=== PATIENT | male | born 1985 | race Caucasian/White ===

== ENCOUNTER 2017-05-18 16:16 | Inpatient (IN) ==
[2017-05-18] MEDS ORDERED: LORazepam 2 MG/ML VIAL IV ONE ×2 (16:19→17:25)
[2017-05-18] MEDS ORDERED: 0.9 % SODIUM CHLORIDE 2,000 ML IV ONE (16:19)
[2017-05-18] MEDS ORDERED: ONDANSETRON 4 MG/2 ML VIAL ONE (16:20)
[2017-05-18] MEDS ORDERED: ONDANSETRON 4 MG/2 ML VIAL IV ONE (16:22)
[2017-05-18] MEDS ORDERED: HALOPERIDOL LACTATE 5 MG/ML VIAL ONE ×2 (16:27→21:34)
[2017-05-18] MEDS ORDERED: LORazepam 2 MG/ML VIAL ONE (16:30)
[2017-05-18 17:06] LABS: Basophils # (Auto) 0 K/mcL (0.0-0.3); Basophils % (Auto) 0.4 % (0.0-2.0); Eosinophils # (Auto) 0.2 K/mcL (0.0-0.7); Eosinophils % (Auto) 1.9 % (0.0-7.0); Granulocytes % (Auto) 63.8 % (38.0-78.0); Lymphocytes # (Auto) 1.9 K/mcL (1.5-4.8); Mean Cell Volume 90.6 fL (80.0-100.0); Mean Corpuscular HGB Conc 33.2 g/dL (31.0-36.0); Mean Corpuscular Hemoglobin 30.1 pg (26.0-34.0); Monocytes # (Auto) 0.8 K/mcL (0.1-0.9); Monocytes % (Auto) 9.9 % (1.0-12.0); Platelet Count 227 K/mcL (140-440); RBC 5.34 M/mcL (4.50-5.90)
[2017-05-18 17:28] LABS: ALT/SGPT 55 U/l (0-40); Albumin 4.5 gm/dL (3.2-5.2); Albumin/Globulin Ratio 1.6 (1.0-2.3); Alkaline Phosphatase 64 U/L (39-117); Blood Urea Nitrogen 23 mg/dl (6-20); Creatine Kinase 146 IU/L (24-195)
[2017-05-18 17:31] LABS: Acetaminophen < 5.0 ug/mL; Salicylate < 0.3 mg/dL
[2017-05-18 17:44] LABS: Amphetamine Screen,Urine SUSPECT POSITIVE (NONDETECTED); Benzodiazepines Screen,Urine NONE DETECTED (NONDETECTED); Cocaine Screen,Urine NONE DETECTED (NONDETECTED); Opiate Screen,Urine NONE DETECTED (NONDETECTED); Oxycodone, Urine Screen NONE DETECTED (NONDETECTED)
--- NOTE | 2017-05-18 17:55 | XRay Report ---
HISTORY: Reason for Exam:Altered mental status FINDINGS: The lungs are clear but incompletely expanded due to poor inspiration. Heart is also prominent but accentuated by poor inspiration and portable technique. There is no pleural effusion. No adenopathy is detected. Impression: suboptimal inspiration but otherwise normal chest Interpreted and Authenticated by: Lexa Almeida 05/18/17
--- NOTE | 2017-05-18 17:57 | Cat Scan Report ---
History: Drug overdose and unresponsive Findings: The brain was imaged without contrast at 2.5 mm intervals. There is no evidence of hemorrhage, infarct, edema, mass effect or developmental anomaly. No degenerative change is seen. The ventricles and cisterns are normal. Bone windows show no skull lesion. Impression: Normal unenhanced head CT Dr. Bowers was called with results Interpreted and Authenticated by: Lexa Almeida 05/18/17
[2017-05-18 18:52] LABS: Appearance,Urine TURBID; Bacteria,Urine 0 /hpf (0); Bilirubin,Urine NEG (NEG); Color,Urine YELLOW; Glucose,Urine (UA) NEGATIVE (NEG); Leukocyte Esterase,Urine NEG /uL (NEG); Mucus,Urine MANY /hpf (0); Protein,Urine 30 mg/dL (NEG); Urine Amorphous Crystals FEW /hpf (0); Urine Blood NEG mg/dL (<0.03); Urine Hyaline Cast 2 /lpf (0-2); Urine RBC 1 /hpf (0-1); Urine Squamous Epithelial Cell 0 /hpf (0-4); Urine WBC 4 /hpf (0-4); Urobilinogen,Urine NEG (NEG)
[2017-05-18] MEDS ORDERED: 0.9 % SODIUM CHLORIDE 1,000 ML IV ONE (19:00)
--- NOTE | 2017-05-18 19:14 | Emergency Department Note ---
Altered Mental Status HPI - General Chief Complaint: Altered Mental Status Stated Complaint: Unresponsive Time Seen by Provider: 05/18/17 16:18 Source: EMS Mode of arrival: EMS Limitations: altered mental status, physical limitation - History of Present Illness HPI Narrative: 31-year-old male brought in by police for altered mental status. Apparently the neighbors called police due to him acting very strangely. According to the collection officer and police that are here with him, they think that he took an overdose of his antidepressants. Possibly 8 or 9 pills according to their account. He is currently taking BuSpar and amitriptyline. According to the he does not take his medications as directed. She states that he does not take them for weeks at a time and then will take 6 at a time. His , Sourav, did call and have a conversation with me via phone. She states that over the last 2-3 months he has become extremely erratic and very depressed. States he has a history of schizophrenia, bipolar, depression, anxiety, and multiple personality disorder. States he has not been taking his medication as he is supposed to. She states she last dropped him off at home and he was acting like his usual self, "or at least the way he has been acting last 2 or 3 months ", at 1345 today. About a half hour later she received a text from him saying "I love you and I am sorry for everything ". She states he does this when he attempts to harm himself and so she thought something could be wrong. Shortly after that she received a call from the neighbors that they had called police due to his altered level of consciousness and they are concerned. His does state he has a history of meth use and heroin use. Over the last couple of weeks they have also caught him stealing his [id number]'s insulin needles and shooting up toilet bowl book cleaner. His states in the last 3 weeks he has made multiple attempts to kill himself including this. He tells her that he is taking extremely high doses of meth to try to kill himself as well as shooting up the toilet bowl book cleaner. She has also caught him with a belt around his neck in bed this week and was able to get off of him. She states she has not called police because he freaks out even more because he is on probation and paranoid of police. States he spent his life and out of nursing home due to drug use and his erratic behavior. She states he desperately needs help and she does not know what to do for him. She does state that last weekend he went to detox up at [facility] and [facility]. He entered on Thursday and was released Thursday and she picked him up there. When he was released Thursday originally he was supposed to go to an inpatient mental health facility however he does not have insurance and they could not find any program that was going to take him because of that. She believes that he overdosed her to a combination of drugs and medications to try and harm himself today because his attempts are getting more frequent and more serious. She reports the last 2-3 months he also has extreme paranoid behavior. She also feels like he is seeing things or hearing things. He does not have a primary care provider but rather goes to [facility] clinic. She states this last week he has really escalated in the try to get an appointment there however they were completely full and he could not follow up with anyone. The patient is extremely combative on arrival and does not give comprehensible answers. History is not able to be obtained from him. MD complaint: altered mental status Context: drug abuse Associated symptoms: Denies: rash - Related Data Home Medications Medication Instructions Recorded Confirmed Unobtainable [Unobtainable] 05/18/17 05/18/17 Allergies Allergy/AdvReac Type Severity Reaction Status Date / Time No Known Drug Allergies Allergy Unverified 06/02/16 14:13 Review of Systems All systems ED: reviewed and negative except as stated. Past Medical History - Past Medical History Medical history: Reports: no medical history Psychiatric history: Reports: anxiety, depression, bipolar, prior suicide attempt, schizophrenia, other (multiple personalities) Surgical history ED: Reports: no surgical history - Social History smoking status: Unknown if ever smoked Alcohol use: Reports: Unknown Drug use: Reports: opiates, methamphetamine, IVDU, prescription drug abuse Physical Exam Limitations: altered mental status, physical limitation General appearance: in distress (Thrashing in the bed, opens his eyes spontaneously at times and withdraws to painful stimulation. He is not able to have any comprehensible conversation. Appears to be hallucinating and is not alert.) Head: atraumatic, normocephalic, normal inspection Eye: Present: normal appearance, other (Pupils are pinpoint). Absent: conjunctival injection ENT: normal exam, normal oropharynx, mucous membranes moist, TM's normal bilaterally, normal external ear exam Neck: Present: normal inspection, trachea midline. Absent: lymphadenopathy Chest: Present: normal inspection, symmetric chest wall rise Respiratory: Present: normal lung sounds bilaterally. Absent: respiratory distress, wheezes, accessory muscle use Cardiovascular: Present: regular rate, normal heart sounds Abdominal: Present: soft, normal bowel sounds. Absent: distention, tenderness, mass Extremities: Present: normal inspection, normal capillary refill. Absent: pedal edema Neurological: Absent: alert, oriented X3 Patient oriented to: Absent: person, place, time Coma Scale Eye Opening: Spontaneous Coma Scale Motor Response: Withdraws to Pain Coma Scale Verbal Response: Incomprehensible Coma Scale Total: 10 Psychiatric: Present: agitated, anxious Skin: Present: warm, dry, intact, normal color. Absent: rash, cyanosis, diaphoresis, erythema Course Course Narrative: at [address] I did speak with Dr. Mcgee who agrees to accept the patient. Vital Signs Temperature 97.8 F 05/18/17 16:18 Pulse Rate 118 H 05/18/17 16:18 Respiratory Rate 18 05/18/17 16:18 Blood Pressure 143/103 05/18/17 16:18 Pulse Oximetry (%) 94 05/18/17 16:18 Temperature 97.8 F 05/18/17 16:18 Pulse Rate 80 05/18/17 19:16 Respiratory Rate 12 05/18/17 19:51 Blood Pressure 119/79 05/18/17 19:46 Pulse Oximetry (%) 100 05/18/17 19:16 Altered Mental Status - Lab Data Lab results reviewed: Yes I reviewed the patient's lab results. Result diagrams: 05/18/17 16:34 05/18/17 16:33 Lab Results 05/18/17 05/18/17 05/18/17 Range/Units 16:31 16:31 16:33 WBC (4.5-11.0) K/mcL RBC (4.50-5.90) M/mcL Hgb (13.5-16.5) g/dL Hct (41.0-55.0) % POC Hct 50.0 (41.0-55.0) % MCV (80.0-100.0) fL MCH (26.0-34.0) pg MCHC (31.0-36.0) g/dL RDW (11.5-14.5) % Plt Count (140-440) K/mcL MPV (7.4-10.4) fL Gran % (38.0-78.0) % Lymph % (Auto) (15.5-49.0) % Chaffee % (Auto) (1.0-12.0) % Eos % (Auto) (0.0-7.0) % Baso % (Auto) (0.0-2.0) % Gran # (1.8-8.0) K/mcL Lymph # (Auto) (1.5-4.8) K/mcL [place]fee # (Auto) (0.1-0.9) K/mcL Eos # (Auto) (0.0-0.7) K/mcL Baso # (Auto) (0.0-0.3) K/mcL POC PT (11.9-14.5) sec POC INR (0.9-1.2) VBG Lactic Acid POC Sodium 142 (133-145) mmol/L Sodium 137 (133-145) mmol/L POC Potassium 3.4 (3.3-5.1) mmol/L Potassium 3.4 (3.3-5.1) mmol/L POC Chloride 103 (96-108) mmol/L Chloride 98 (96-108) mmol/L Carbon Dioxide 22 (22-30) mmol/L POC Total CO2 27 (22-30) mmol/L Anion Gap 17.0 H (8-16) POC BUN 28 H (6-20) mg/dl BUN 23 H (6-20) mg/dl Creatinine 1.2 (0.7-1.2) mg/dl POC Creatinine 1.2 (0.7-1.2) mg/dl GFR Calculation 80 Glucose 100 (70-105) mg/dL POC Glucose 105 (70-105) mg/dL Calcium 9.0 (8.6-10.4) mg/dl POC WB Ioniz Calcium 1.13 L (1.16-1.32) mmol/L Total Bilirubin 0.8 (0.0-1.0) mg/dL AST 26 (0-37) U/l ALT 55 H (0-40) U/l Alkaline Phosphatase 64 (39-117) U/L Ammonia Total Creatine Kinase 146 (24-195) IU/L Troponin T (0-0.03) ng/ml Total Protein 7.3 (5.9-8.4) gm/dL Albumin 4.5 (3.2-5.2) gm/dL Globulin 2.8 (2.2-3.7) gm/dL Albumin/Globulin Ratio 1.6 (1.0-2.3) Urine Color Urine Appearance Urine pH (5.0-9.0) Ur Specific Ponce (1.000-1.035) Urine Protein (NEG) mg/dL Urine Glucose (UA) (NEG) mg/dL Urine Ketones (NEG) mg/dL Urine Occult Blood (<0.03) mg/dL Urine Nitrate (NEG) Urine Bilirubin (NEG) mg/dL Urine Urobilinogen (NEG) mg/dL Ur Leukocyte Esterase (NEG) /uL Urine RBC (0-1) /hpf Urine WBC (0-4) /hpf Ur Squamous Epith Cells (0-4) /hpf Amorphous Crystals (0) /hpf Urine Bacteria (0) /hpf Hyaline Casts (0-2) /lpf Urine Mucus (0) /hpf Ur Culture Indicated? Salicylates < 0.3 mg/dL Urine Opiates Screen (NONDETECTED) Ur Oxycodone Screen (NONDETECTED) Urine Methadone Screen (NONDETECTED) Acetaminophen < 5.0 ug/mL Ur Barbiturates Screen (NONDETECTED) Ur Phencyclidine Scrn (NONDETECTED) Ur Amphetamines Screen (NONDETECTED) U Benzodiazepines Scrn (NONDETECTED) Urine Cocaine Screen (NONDETECTED) U Marijuana (THC) Screen (NONDETECTED) Ethyl Alcohol < 0.010 (<0.010) gm/dl 05/18/17 05/18/17 05/18/17 Range/Units 16:33 16:34 16:53 WBC 8.1 (4.5-11.0) K/mcL RBC 5.34 (4.50-5.90) M/mcL Hgb 16.1 (13.5-16.5) g/dL Hct 48.4 (41.0-55.0) % POC Hct (41.0-55.0) % MCV 90.6 (80.0-100.0) fL MCH 30.1 (26.0-34.0) pg MCHC 33.2 (31.0-36.0) g/dL RDW 14.0 (11.5-14.5) % Plt Count 227 (140-440) K/mcL MPV 9.4 (7.4-10.4) fL Gran % 63.8 (38.0-78.0) % Lymph % (Auto) 24.0 (15.5-49.0) % [place]affee % (Auto) 9.9 (1.0-12.0) % Eos % (Auto) 1.9 (0.0-7.0) % Baso % (Auto) 0.4 (0.0-2.0) % Gran # 5.1 (1.8-8.0) K/mcL Lymph # (Auto) 1.9 (1.5-4.8) K/mcL [place] # (Auto) 0.8 (0.1-0.9) K/mcL Eos # (Auto) 0.2 (0.0-0.7) K/mcL Baso # (Auto) 0 (0.0-0.3) K/mcL POC PT 13.9 (11.9-14.5) sec POC INR 1.2 (0.9-1.2) VBG Lactic Acid POC Sodium (133-145) mmol/L Sodium (133-145) mmol/L POC Potassium (3.3-5.1) mmol/L Potassium (3.3-5.1) mmol/L POC Chloride (96-108) mmol/L Chloride (96-108) mmol/L Carbon Dioxide (22-30) mmol/L POC Total CO2 (22-30) mmol/L Anion Gap (8-16) POC BUN (6-20) mg/dl BUN (6-20) mg/dl Creatinine (0.7-1.2) mg/dl POC Creatinine (0.7-1.2) mg/dl GFR Calculation Glucose (70-105) mg/dL POC Glucose (70-105) mg/dL Calcium (8.6-10.4) mg/dl POC WB Ioniz Calcium (1.16-1.32) mmol/L Total Bilirubin (0.0-1.0) mg/dL AST (0-37) U/l ALT (0-40) U/l Alkaline Phosphatase (39-117) U/L Ammonia Total Creatine Kinase (24-195) IU/L Troponin T < 0.01 (0-0.03) ng/ml Total Protein (5.9-8.4) gm/dL Albumin (3.2-5.2) gm/dL Globulin (2.2-3.7) gm/dL Albumin/Globulin Ratio (1.0-2.3) Urine Color Urine Appearance Urine pH (5.0-9.0) Ur Specific Ponce (1.000-1.035) Urine Protein (NEG) mg/dL Urine Glucose (UA) (NEG) mg/dL Urine Ketones (NEG) mg/dL Urine Occult Blood (<0.03) mg/dL Urine Nitrate (NEG) Urine Bilirubin (NEG) mg/dL Urine Urobilinogen (NEG) mg/dL Ur Leukocyte Esterase (NEG) /uL Urine RBC (0-1) /hpf Urine WBC (0-4) /hpf Ur Squamous Epith Cells (0-4) /hpf Amorphous Crystals (0) /hpf Urine Bacteria (0) /hpf Hyaline Casts (0-2) /lpf Urine Mucus (0) /hpf Ur Culture Indicated? Salicylates mg/dL Urine Opiates Screen (NONDETECTED) Ur Oxycodone Screen (NONDETECTED) Urine Methadone Screen (NONDETECTED) Acetaminophen ug/mL Ur Barbiturates Screen (NONDETECTED) Ur Phencyclidine Scrn (NONDETECTED) Ur Amphetamines Screen (NONDETECTED) U Benzodiazepines Scrn (NONDETECTED) Urine Cocaine Screen (NONDETECTED) U Marijuana (THC) Screen (NONDETECTED) Ethyl Alcohol (<0.010) gm/dl 05/18/17 05/18/17 05/18/17 Range/Units 16:54 16:55 17:04 WBC (4.5-11.0) K/mcL RBC (4.50-5.90) M/mcL Hgb (13.5-16.5) g/dL Hct (41.0-55.0) % POC Hct (41.0-55.0) % MCV (80.0-100.0) fL MCH (26.0-34.0) pg MCHC (31.0-36.0) g/dL RDW (11.5-14.5) % Plt Count (140-440) K/mcL MPV (7.4-10.4) fL Gran % (38.0-78.0) % Lymph % (Auto) (15.5-49.0) % [place]affee % (Auto) (1.0-12.0) % Eos % (Auto) (0.0-7.0) % Baso % (Auto) (0.0-2.0) % Gran # (1.8-8.0) K/mcL Lymph # (Auto) (1.5-4.8) K/mcL [place]affee # (Auto) (0.1-0.9) K/mcL Eos # (Auto) (0.0-0.7) K/mcL Baso # (Auto) (0.0-0.3) K/mcL POC PT (11.9-14.5) sec POC INR (0.9-1.2) VBG Lactic Acid TNP POC Sodium (133-145) mmol/L Sodium (133-145) mmol/L POC Potassium (3.3-5.1) mmol/L Potassium (3.3-5.1) mmol/L POC Chloride (96-108) mmol/L Chloride (96-108) mmol/L Carbon Dioxide (22-30) mmol/L POC Total CO2 (22-30) mmol/L Anion Gap (8-16) POC BUN (6-20) mg/dl BUN (6-20) mg/dl Creatinine (0.7-1.2) mg/dl POC Creatinine (0.7-1.2) mg/dl GFR Calculation Glucose (70-105) mg/dL POC Glucose (70-105) mg/dL Calcium (8.6-10.4) mg/dl POC WB Ioniz Calcium (1.16-1.32) mmol/L Total Bilirubin (0.0-1.0) mg/dL AST (0-37) U/l ALT (0-40) U/l Alkaline Phosphatase (39-117) U/L Ammonia TNP Total Creatine Kinase (24-195) IU/L Troponin T (0-0.03) ng/ml Total Protein (5.9-8.4) gm/dL Albumin (3.2-5.2) gm/dL Globulin (2.2-3.7) gm/dL Albumin/Globulin Ratio (1.0-2.3) Urine Color Urine Appearance Urine pH (5.0-9.0) Ur Specific Ponce (1.000-1.035) Urine Protein (NEG) mg/dL Urine Glucose (UA) (NEG) mg/dL Urine Ketones (NEG) mg/dL Urine Occult Blood (<0.03) mg/dL Urine Nitrate (NEG) Urine Bilirubin (NEG) mg/dL Urine Urobilinogen (NEG) mg/dL Ur Leukocyte Esterase (NEG) /uL Urine RBC (0-1) /hpf Urine WBC (0-4) /hpf Ur Squamous Epith Cells (0-4) /hpf Amorphous Crystals (0) /hpf Urine Bacteria (0) /hpf Hyaline Casts (0-2) /lpf Urine Mucus (0) /hpf Ur Culture Indicated? Salicylates mg/dL Urine Opiates Screen None detected (NONDETECTED) Ur Oxycodone Screen None detected (NONDETECTED) Urine Methadone Screen None detected (NONDETECTED) Acetaminophen ug/mL Ur Barbiturates Screen None detected (NONDETECTED) Ur Phencyclidine Scrn None detected (NONDETECTED) Ur Amphetamines Screen Suspect positive A (NONDETECTED) U Benzodiazepines Scrn None detected (NONDETECTED) Urine Cocaine Screen None detected (NONDETECTED) U Marijuana (THC) Screen None detected (NONDETECTED) Ethyl Alcohol (<0.010) gm/dl 05/18/17 05/18/17 05/18/17 Range/Units 17:21 18:02 18:25 WBC (4.5-11.0) K/mcL RBC (4.50-5.90) M/mcL Hgb (13.5-16.5) g/dL Hct (41.0-55.0) % POC Hct (41.0-55.0) % MCV (80.0-100.0) fL MCH (26.0-34.0) pg MCHC (31.0-36.0) g/dL RDW (11.5-14.5) % Plt Count (140-440) K/mcL MPV (7.4-10.4) fL Gran % (38.0-78.0) % Lymph % (Auto) (15.5-49.0) % [place] % (Auto) (1.0-12.0) % Eos % (Auto) (0.0-7.0) % Baso % (Auto) (0.0-2.0) % Gran # (1.8-8.0) K/mcL Lymph # (Auto) (1.5-4.8) K/mcL [place] # (Auto) (0.1-0.9) K/mcL Eos # (Auto) (0.0-0.7) K/mcL Baso # (Auto) (0.0-0.3) K/mcL POC PT (11.9-14.5) sec POC INR (0.9-1.2) VBG Lactic Acid 0.7 POC Sodium (133-145) mmol/L Sodium (133-145) mmol/L POC Potassium (3.3-5.1) mmol/L Potassium (3.3-5.1) mmol/L POC Chloride (96-108) mmol/L Chloride (96-108) mmol/L Carbon Dioxide (22-30) mmol/L POC Total CO2 (22-30) mmol/L Anion Gap (8-16) POC BUN (6-20) mg/dl BUN (6-20) mg/dl Creatinine (0.7-1.2) mg/dl POC Creatinine (0.7-1.2) mg/dl GFR Calculation Glucose (70-105) mg/dL POC Glucose (70-105) mg/dL Calcium (8.6-10.4) mg/dl POC WB Ioniz Calcium (1.16-1.32) mmol/L Total Bilirubin (0.0-1.0) mg/dL AST (0-37) U/l ALT (0-40) U/l Alkaline Phosphatase (39-117) U/L Ammonia 39 Total Creatine Kinase (24-195) IU/L Troponin T (0-0.03) ng/ml Total Protein (5.9-8.4) gm/dL Albumin (3.2-5.2) gm/dL Globulin (2.2-3.7) gm/dL Albumin/Globulin Ratio (1.0-2.3) Urine Color Yellow Urine Appearance Turbid Urine pH 5.0 (5.0-9.0) Ur Specific Ponce 1.030 (1.000-1.035) Urine Protein 30 A (NEG) mg/dL Urine Glucose (UA) Negative (NEG) mg/dL Urine Ketones Neg (NEG) mg/dL Urine Occult Blood Neg (<0.03) mg/dL Urine Nitrate Neg (NEG) Urine Bilirubin Neg (NEG) mg/dL Urine Urobilinogen Neg (NEG) mg/dL Ur Leukocyte Esterase Neg (NEG) /uL Urine RBC 1 (0-1) /hpf Urine WBC 4 (0-4) /hpf Ur Squamous Epith Cells 0 (0-4) /hpf Amorphous Crystals Few A (0) /hpf Urine Bacteria 0 (0) /hpf Hyaline Casts 2 (0-2) /lpf Urine Mucus Many A (0) /hpf Ur Culture Indicated? No Salicylates mg/dL Urine Opiates Screen (NONDETECTED) Ur Oxycodone Screen (NONDETECTED) Urine Methadone Screen (NONDETECTED) Acetaminophen ug/mL Ur Barbiturates Screen (NONDETECTED) Ur Phencyclidine Scrn (NONDETECTED) Ur Amphetamines Screen (NONDETECTED) U Benzodiazepines Scrn (NONDETECTED) Urine Cocaine Screen (NONDETECTED) U Marijuana (THC) Screen (NONDETECTED) Ethyl Alcohol (<0.010) gm/dl - Radiology Data Radiology results reviewed: Yes I reviewed the patient's radiology results. - EKG Data EKG attestation: Yes I reviewed and interpreted this EKG. Disposition Pt seen by BUSINESS INSTRUCTOR/PA only: No Clinical Impression: Drug abuse, Altered level of consciousness, Drug overdose, Suicide attempt by drug ingestion Disposition: Xfer As Inpt ([facility]) Condition: Serious Time of Disposition: 20:00
--- NOTE | 2017-05-18 20:42 | Emergency Department Note ---
ED Note Addendum Note Addendum: I saw this patient with Donna MERCHANT-we discussed the case as it evolved. I agree with her evaluation treatment and documentation. In particular I actually took history from the police officers that brought him in and doing a quick initial evaluation, putting in some orders prior to Donna coming in. On intake he was breathing on his own and quite combative, signed for suleiman. As he had altered mental status we were not able to get any meaningful history or review of systems from him. We did give him 3 mg of Ativan which sedated him however he was breathing well on his own just required a small amount of supplemental oxygen. At no time was his respiratory or mental status bad enough to require us to intubate him; however we did consider this and plan for that in case that time came; these items were moved to the bedside. He was able to protect his airway and control his secretions so intubation was not required. Hospitalist was contacted by Donna ; Dr. Mcgee agreed to accept the patient for further inpatient care and workup
[2017-05-18] MEDS ORDERED: POTASSIUM CHLORIDE 40 MEQ in DEXTROSE 5% IN WATER 500 ML IV ONE (21:35)
[2017-05-18] MEDS ORDERED: NALOXONE HCL 0.4 MG/ML VIAL IV PRN (21:35)
[2017-05-18] MEDS ORDERED: ACETAMINOPHEN 325 MG TABLET PO PRN (21:35)
[2017-05-18] MEDS ORDERED: HALOPERIDOL LACTATE 5 MG/ML VIAL IV PRN (21:35)
[2017-05-18] MEDS ORDERED: POTASSIUM CHLORIDE 20 MEQ, MAGNESIUM SULFATE 16.24 MEQ, THIAMINE 100 MG, MVI, ADULT NO.... IV SCH (21:35)
--- NOTE | 2017-05-18 21:37 | Internal Med History&Physical ---
Medical - H&P: HPI Patient information: Note initiated : 05/18/17 at 9:34 pm Service Date, if different from initiated Date: [] Patient: Brenden Moses a 31 y/o M admitted on 05/18/17 for Unresponsive. Chief Complaint: [] History of present illness: Mr. Moses is a 31 year old Male brought in the ER via police for altered mental status, patient history has been obtained by reviewing chart notes. Patient, on my evaluation, was completely altered and not able to provide a meaningful history. Had received Ativan multiple times due to agitated behavior. According to chart review, this is a 31-year-old male who apparently has history of schizophrenia, depression, anxiety, multiple suicide attempts in the past, it seems he also has had involvement with lawn ordered in the past and is on parole. According to the chart, it seems that the patient has been behaving abnormally for the last 2-3 months. This history was obtained by the ER provider by talking directly with the patient's . It seems that the patient was recently in drug rehabilitation facility and the line to transition him to inpatient psychiatry facility, but due to lack of insurance, this was not achievable. The patient then sent a Text message to hhis that he is sorry for all the trouble he caused . After some time he was seen by the neighbors acting erratically. They had called the loss prevention detective because of his erratic behavior. Patient was then sedated and brought to the emergency for further management. According to the , the patient has a history of noncompliance with his medications and patient's medical history cannot be relied upon for which medications he took. As there have been instances in the past where he has not taken medications at a stretch and then taken them all in one go. 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 In the emergency room, patient was drowsy on presentation, but very agitated when he tries to get up, he required Ativan to keep him calm along with the restraints. According to the ER note provider. Patient tolerated this well and did not go into respiratory depression. No need for intubation. They spoke with poison contro who . Advised to monitor the patient and expect the patient's medications to clear up. patient's labs are unremarkable, CBC and CMP are normal. Potassium is 3.4, magnesium is 2.0. ABG reviewed, chest x-ray is negative. Head CT is negative, urine drug screen is positive for meth, salicylate and apap levels are negative. Tricyclic levels are pending. Ethanol level is negative. EKG showed sinus rhythm, left axis deviation, QTC of 0.486 and nonspecific T-wave changes in inferior and lateral leads given altered mental status, need for continuous monitoring, possible and likely suicide attempt, patient was presented for admission and will be admitted to PCU status for further management. ROS unobtainable: due to mental status Medical - H&P: PMH Medical history: see HPI Surgical history: unable Pertinent family history: unable Social history: h/o substance abuse, heavy meth user toilet clearer IV use? Medical - H&P: Meds Home Medications Medication Instructions Recorded Confirmed Type Unobtainable [Unobtainable] 05/18/17 05/18/17 History Allergies Allergy/AdvReac Type Severity Reaction Status Date / Time No Known Drug Allergies Allergy Unverified 06/02/16 14:13 Medical - H&P: Exam - Constitutional Vitals: Temp Pulse Resp BP Pulse Ox 97.8 F 80 14 110/71 100 05/18/17 16:18 05/18/17 19:16 05/18/17 21:06 05/18/17 20:46 05/18/17 19:16 Exam: GENERAL: The patient is a well-developed, well-nourished in no apparent distress. Is sleeping after use of sedatives. VITAL SIGNS: Reviewed and as noted elsewhere. HEENT: Head is normocephalic and atraumatic. . Pupils on left eye, 2 mm reactive to light, right eye covered and patient not amneable to exam . Nares appeared normal. Mucous membranes are dry NECK: Normal to inspection, Supple, No lymphadenopathy or thyromegaly. LUNGS: Air entry equal on both sides, no wheezing, crackles or rhonchi noted. No accessory muscles of respiration HEART: Regular rate and rhythm normal, S1 and S2 heard, no Gallop, S3 or Rub Noted, No Gross murmur heard. ABDOMEN: Soft, nontender, and nondistended. Positive bowel sounds. No hepatosplenomegaly was noted. EXTREMITIES: No cyanosis, clubbing, rash, lesions or edema. NEUROLOGIC: Cranial nerves II through XII are grossly intact. no e/o focal deficit, able to move all limbs when was not under sedation. PSYCHIATRIC: sleepy SKIN: multiple tatoos. Medical - H&P: Reslt - Labs CBC & Chem 7: 05/18/17 16:34 05/18/17 16:33 Labs: Short CBC 05/18/17 Range/Units 16:34 WBC 8.1 (4.5-11.0) K/mcL Hgb 16.1 (13.5-16.5) g/dL Hct 48.4 (41.0-55.0) % Plt Count 227 (140-440) K/mcL BMP 05/18/17 16:33 Sodium 137 Potassium 3.4 Chloride 98 Carbon Dioxide 22 BUN 23 H Creatinine 1.2 Glucose 100 Calcium 9.0 Cardiac Enzymes 05/18/17 05/18/17 Range/Units 16:33 16:33 Total Creatine Kinase 146 (24-195) IU/L Troponin T < 0.01 (0-0.03) ng/ml Liver Function 05/18/17 Range/Units 16:33 Total Bilirubin 0.8 (0.0-1.0) mg/dL AST 26 (0-37) U/l ALT 55 H (0-40) U/l Alkaline Phosphatase 64 (39-117) U/L Albumin 4.5 (3.2-5.2) gm/dL Urine 05/18/17 Range/Units 17:21 Urine Color Yellow Urine Appearance Turbid Urine pH 5.0 (5.0-9.0) Ur Specific [place] 1.030 (1.000-1.035) Urine Protein 30 A (NEG) mg/dL Urine Glucose (UA) Negative (NEG) mg/dL Medical - H&P: A/P - Narrative A/P Narrative: A/P Drug overdose: It looks like the patient was on buspar, and amitriptyline. TCA levels pending, patient also took meth. It is very likely that he took a total of the substances which cannot be verified. Patient will be monitored in the ICU, monitor QTC, IV thiamine, IV fluids, IV magnesium,IV potassium, to be given. Monitor the patient's behavior. monitor QTC Suicide attempt.:QBH consult. Once patient's is medically stable. aggressive behavior-restraints on as-needed basis, Ativan when necessary, Haldol when necessary patient already on telemetry DVT-heparin subcutaneous. Diet nothing by mouth status Spent more than 45 minutes, rendering critical care, reviewing chart, coordinating care, reviewing x-rays and ABGs
[2017-05-18] MEDS ORDERED: MAGNESIUM SULFATE 8.12 MEQ/2 ML VIAL ONE (21:39)
[2017-05-18] MEDS ORDERED: POTASSIUM CHLORIDE 20 MEQ/10 ML VIAL IV ONE ×2 (21:39→22:12)
[2017-05-18] MEDS: DEXTROSE 5%-LR 1,000 ML IV SCH (21:43)
[2017-05-18] MEDS: HEPARIN 5,000 UNIT/ML VIAL SQ SCH (21:47)
[2017-05-18] MEDS: LORazepam 2 MG/ML VIAL IV PRN ×2 (22:08→23:59)
[2017-05-18] MEDS: 0.9 % SODIUM CHLORIDE 10 ML SYRINGE IV SCH (22:09)
[2017-05-19] MEDS: LORazepam 2 MG/ML VIAL IV PRN ×7 (01:57→22:24)
[2017-05-19] MEDS: 0.9 % SODIUM CHLORIDE 10 ML SYRINGE IV SCH ×3 (05:20→20:24)
[2017-05-19 05:37] LABS: Basophils # (Auto) 0 K/mcL (0.0-0.3); Basophils % (Auto) 0.5 % (0.0-2.0); Eosinophils # (Auto) 0.1 K/mcL (0.0-0.7); Granulocytes % (Auto) 54.1 % (38.0-78.0); Lymphocytes # (Auto) 2.1 K/mcL (1.5-4.8); Lymphocytes % (Auto) 31.5 % (15.5-49.0); Mean Cell Volume 92.3 fL (80.0-100.0); Mean Corpuscular HGB Conc 33.3 g/dL (31.0-36.0); Mean Corpuscular Hemoglobin 30.7 pg (26.0-34.0); Monocytes # (Auto) 0.8 K/mcL (0.1-0.9); Monocytes % (Auto) 11.9 % (1.0-12.0); Platelet Count 198 K/mcL (140-440); RBC 4.49 M/mcL (4.50-5.90); Red Cell Distribution Width 14.3 % (11.5-14.5)
[2017-05-19 06:11] LABS: ALT/SGPT 39 U/l (0-40); Albumin 3.3 gm/dL (3.2-5.2); Albumin/Globulin Ratio 1.6 (1.0-2.3); Alkaline Phosphatase 47 U/L (39-117); Bilirubin,Direct < 0.2 mg/dL (0.0-0.3); Blood Urea Nitrogen 14 mg/dl (6-20); Gamma Glutamyl Transpeptidase 51 U/L (8-61); Uric Acid 6.5 mg/dL (2.5-8.0)
[2017-05-19] MEDS: THIAMINE 100 MG in 0.9 % SODIUM CHLORIDE 50 ML IV SCH (08:53)
[2017-05-19] MEDS: HEPARIN 5,000 UNIT/ML VIAL SQ SCH ×3 (08:54→21:08)
[2017-05-19] MEDS: DEXTROSE 5%-LR 1,000 ML IV SCH ×2 (10:54→19:14)
[2017-05-19] MEDS ORDERED: LORazepam 2 MG/ML VIAL IV ONE (12:09)
[2017-05-19] MEDS ORDERED: OLANZapine 10 MG VIAL IM SCH (12:15)
--- NOTE | 2017-05-19 14:40 | Internal Med Progress Note ---
Medical - PN: Subj Patient information: Note initiated : 05/19/17 at 2:36 pm Service Date, if different from initiated Date: [] Patient: Brenden Moses a 31 y/o M admitted on 05/18/17 for Unresponsive/Drug Overdose. Chief Complaint: [] Interval history: Mr. Moses is a 31 year old Male brought in the ER via police for altered mental status, patient history has been obtained by reviewing chart notes. Patient, on my evaluation, was completely altered and not able to provide a meaningful history. Had received Ativan multiple times due to agitated behavior. According to chart review, this is a 31-year-old male who apparently has history of schizophrenia, depression, anxiety, multiple suicide attempts in the past, it seems he also has had involvement with lawn ordered in the past and is on parole. According to the chart, it seems that the patient has been behaving abnormally for the last 2-3 months. This history was obtained by the ER provider by talking directly with the patient's . It seems that the patient was recently in drug rehabilitation facility and the line to transition him to inpatient psychiatry facility, but due to lack of insurance, this was not achievable. The patient then sent a Text message to hhis that he is sorry for all the trouble he caused . After some time he was seen by the neighbors acting erratically. They had called the oil well gun perforator operator because of his erratic behavior. Patient was then sedated and brought to the emergency for further management. According to the , the patient has a history of noncompliance with his medications and patient's medical history cannot be relied upon for which medications he took. As there have been instances in the past where he has not taken medications at a stretch and then taken them all in one go. Patient also apparently takes high doses of meth, and also shooting toilet bowl pin cleaner using insulin syringes. In the emergency room, patient was drowsy on presentation, but very agitated when he tries to get up, he required Ativan to keep him calm along with the restraints. According to the ER note provider. Patient tolerated this well and did not go into respiratory depression. No need for intubation. They spoke with poison contro who . Advised to monitor the patient and expect the patient's medications to clear up. patient's labs are unremarkable, CBC and CMP are normal. Potassium is 3.4, magnesium is 2.0. ABG reviewed, chest x-ray is negative. Head CT is negative, urine drug screen is positive for meth, salicylate and apap levels are negative. Tricyclic levels are pending. Ethanol level is negative. EKG showed sinus rhythm, left axis deviation, QTC of 0.486 and nonspecific T-wave changes in inferior and lateral leads given altered mental status, need for continuous monitoring, possible and likely suicide attempt, patient was presented for admission and will be admitted to PCU status for further management. May 19 patient seen and examined, acute or tend events noted. Patient required Ativan as well as Haldol overnight to keep him calm. The patient this morning was a bit more alert, however, intermittently being very agitated. Not answer any of my questions appropriately but did ask me to remove the restraints. The patient later in the morning, got violent and broke the right lower extremity restraint yelling and cursing and being aggressive with the staff. Patient received Zyprexa as well as Ativan to help him calm down. i am anticipating 24 hours for the substances to clear out from his system. We will reassess him tomorrow morning and d/c restrains, and possible qbh eval if patient is stable. Pertinent ROS: unable - Constitutional Vitals: Vital Signs Temp Pulse Resp BP Pulse Ox 97.7 F 72 13 120/90 100 05/19/17 07:00 05/19/17 03:00 05/19/17 07:00 05/19/17 07:00 05/19/17 07:00 Period Temp Pulse Resp BP Sys/Choudhury Pulse Ox Last 24 Hr 97.7 F-97.9 F 68-118 11-39 106-143/68-103 93-100 Intake and Output 05/19/17 05/19/17 05/19/17 05:59 13:59 21:59 Intake Total 160 / 160 891 / 891 Output Total 1900 / 1900 2922 / 2922 Balance -174 / -174 -2030 Intake & Output: Intake & Output 05/19/17 05/19/17 05/19/17 05:59 13:59 21:59 Intake Total 160 / 160 891 / 891 Output Total 1900 / 1900 2922 / 2922 Balance -1740 / -1739 -2030 / -2030 Intake: IV 160 / 160 891 / 891 Dextrose 5%-Lactated Ringers 1, 160 / 160 840 / 840 000 ml @ 125 mls/hr IV .Q8H [facility] Rx#:[id number] Vitamin B1 100 mg In Sodium 51 / 51 Chloride 0.9% 50 ml @ 50 mls/hr IV DAILY [facility] Rx#:[id number] Output: Urine Catheter Amount 1550 / 1550 2922 / 2922 Void Amount 350 / 350 Exam: Constitutional; Afebrile, drowsy and intermittently agitated. Eyes- No icterus, , No periorbital swelling , pupils 3 mm reactive to light bilaterally. Neck- Midline trachea, supple Respiratory system: Air Entry equal on both sides, No crackles or wheezing, no rhonchi. CVS- Rate rhythm regular, S1,S2 heard, no gallop, no rub. Abdomen- Soft nontender abdomen, no organomegaly, no tenderness, no guarding or rigidity, HEEL VARNISHER- AOOx0, moving all extremities, no gross focal deficit noted. Medical - PN: Obj Da - Labs CBC & Chem 7: 05/19/17 03:50 05/19/17 03:50 Labs: Abnormal Lab Results 05/19/17 05/19/17 05/18/17 03:50 03:50 17:21 RBC 4.49 L Chloride 109 H Anion Gap POC BUN BUN Glucose 106 H Calcium 8.0 L POC WB Ioniz Calcium ALT Total Protein 5.4 L Globulin 2.1 L Urine Protein 30 A Amorphous Crystals Few A Urine Mucus Many A Ur Amphetamines Screen 05/18/17 05/18/17 17:04 16:33 RBC Chloride Anion Gap 17.0 H POC BUN 28 H BUN 23 H Glucose Calcium POC WB Ioniz Calcium 1.13 L ALT 55 H Total Protein Globulin Urine Protein Amorphous Crystals Urine Mucus Ur Amphetamines Screen Suspect positive A Meds: Medications Acetaminophen (Tylenol) 650 mg PO Q4-6HP PRN PRN Reason: PAIN/FEVER > 101 Haloperidol Lactate (Haldol) 2 mg IV Q4HP PRN PRN Reason: ANXIETY/SEDATION Heparin Sodium (Porcine) (Heparin) 5,000 unit SQ Q12 [facility] Last Admin: 05/19/17 08:54 Dose: 5,000 unit Dextrose/Lactated Ringer's (Dextrose 5%-Lactated Ringers) 1,000 mls @ 125 mls/ hr IV .Q8H [facility] Stop: 05/19/17 21:34 Last Admin: 05/19/17 10:54 Dose: 125 mls/hr Thiamine HCl 100 mg/ Sodium (Chloride) 51 mls @ 50 mls/hr IV DAILY [facility] Stop: 05/21/17 10:02 Last Infusion: 05/19/17 10:00 Dose: Infused Lorazepam (Ativan) 1 mg IV Q2HP PRN PRN Reason: ANXIETY/SEDATION Last Admin: 05/19/17 12:10 Dose: 1 mg Naloxone HCl (Narcan) 0.1 mg IV Q2MIN PRN PRN Reason: Opiate Reversal Olanzapine (Olanzapine) 10 mg IM ONCE [facility] Last Admin: 05/19/17 12:11 Dose: 10 mg Sodium Chloride (Saline Flush) 10 ml IV Q8 [facility] Last Admin: 05/19/17 05:20 Dose: Not Given Medical - PN: A/P - Time Spent With Patient Total time spent is greater than 50% in coordination of care (as documented) at patient's floor/unit and/or counseling patient: - Narrative A/P Narrative: A/P Drug overdose: TCA levels pending, meth present on utox, intermittent agitation likely from substance use. Continue IVF and maintain good urine output. monitor 1 to 1 in pcu status. await urine drug screen. anticipate clearing by tomorrow. Suicide attempt.:QBH consult. Once patient's is medically stable. aggressive behavior-restraints on as-needed basis, Ativan when necessary, Haldol when necessary patient already on telemetry, DVT-heparin subcutaneous. Diet nothing by mouth status
[2017-05-19] MEDS ORDERED: OLANZapine 10 MG VIAL IM PRN (15:59)
[2017-05-19] MEDS ORDERED: HALOPERIDOL LACTATE 5 MG/ML VIAL ONE (20:31)
[2017-05-19] MEDS ORDERED: HALOPERIDOL LACTATE 5 MG/ML VIAL IV ONE ×2 (20:58→22:28)
[2017-05-19] MEDS ORDERED: DEXMEDETOMIDINE 200 MCG/50 ML IV SCH (21:00)
[2017-05-19] MEDS ORDERED: LORazepam 50 MG in DEXTROSE 5% IN WATER 75 ML IV SCH ×2 (21:30→23:12)
[2017-05-19] MEDS ORDERED: LORazepam 2 MG/ML VIAL ONE (21:34)
[2017-05-19] MEDS ORDERED: DEXTROSE 5% IN WATER 100 ML IV ONE (21:50)
[2017-05-19] MEDS: DEXTROSE 5%-1/2NS W/20MEQ KCL 1,000 ML IV SCH (23:00)
[2017-05-20 05:38] LABS: Basophils # (Auto) 0 K/mcL (0.0-0.3); Basophils % (Auto) 0.4 % (0.0-2.0); Eosinophils # (Auto) 0.1 K/mcL (0.0-0.7); Eosinophils % (Auto) 2.3 % (0.0-7.0); Lymphocytes # (Auto) 2.2 K/mcL (1.5-4.8); Lymphocytes % (Auto) 34.4 % (15.5-49.0); Mean Cell Volume 92.4 fL (80.0-100.0); Mean Corpuscular Hemoglobin 30.5 pg (26.0-34.0); Monocytes # (Auto) 0.6 K/mcL (0.1-0.9); Monocytes % (Auto) 9.9 % (1.0-12.0); Platelet Count 204 K/mcL (140-440); RBC 5.06 M/mcL (4.50-5.90); Red Cell Distribution Width 14.4 % (11.5-14.5)
[2017-05-20 05:58] LABS: ALT/SGPT 39 U/l (0-40); Albumin 3.8 gm/dL (3.2-5.2); Albumin/Globulin Ratio 1.5 (1.0-2.3); Alkaline Phosphatase 55 U/L (39-117); Bilirubin,Direct < 0.2 mg/dL (0.0-0.3); Blood Urea Nitrogen 7 mg/dl (6-20); Gamma Glutamyl Transpeptidase 59 U/L (8-61); Uric Acid 6.7 mg/dL (2.5-8.0)
[2017-05-20] MEDS ORDERED: LORazepam 50 MG in DEXTROSE 5% IN WATER 75 ML IV PRN (07:00)
[2017-05-20] MEDS: 0.9 % SODIUM CHLORIDE 10 ML SYRINGE IV SCH ×2 (07:41→14:50)
[2017-05-20] MEDS: THIAMINE 100 MG in 0.9 % SODIUM CHLORIDE 50 ML IV SCH (08:46)
[2017-05-20] MEDS: HEPARIN 5,000 UNIT/ML VIAL SQ SCH (08:47)
[2017-05-20] MEDS: DEXTROSE 5%-1/2NS W/20MEQ KCL 1,000 ML IV SCH (10:16)
[2017-05-20] MEDS ORDERED: FLUMAZENIL 0.1 MG/ML ML IV ONE ×2 (10:21→10:24)
--- NOTE | 2017-05-20 15:12 | Discharge Summary ---
Medical - DS: Prov Patient information: Note initiated : 05/20/17 at 3:09 pm Service Date, if different from initiated Date: [] Patient: Brenden Moses a 31 y/o M admitted on 05/18/17 for Unresponsive/Drug Overdose. Chief Complaint: [] Date of admission: 05/18/17 21:08 Discharge date: 05/20/17 Admitting clinician: Cyndi Mcgee Consults: 05/18/17 20:00 Consult to Physician [CONS] Stat Comment: Consulting Provider: Cyndi Mcgee Reason For Exam: Physician to Consult Discharging clinician: Cyndi Mcgee Medical - DS: Meds - Discharge Medications Active and Home Medications: Home Medications Unobtainable [Unobtainable] 05/18/17 [History Confirmed 05/18/17 Last Taken Unknown] Medical - DS: Hosp Hospital course: Mr. Moses is a 31 year old Male was brought to the emergency room by police for altered behavior and agitation behavior, he was sedated by the time of admission. He was admitted for polysubstance abuse, possible suicide attempt. The patient was admitted to the ICU and monitored closely, patient had intermittent spells of severe agitation that were not easily controlled with the help of benzodiazepines. He required Haldol intermittently to control his symptoms. The next day, the patient's mental status started to clear up, he asked for food and had appropriate conversations. However, used to drift back to sleep. In the evening he was extremely agitated, required him to go on an Ativan drip. Police were called to help manage the patient's severe agitation as he was a threat to safety off health care providers. this morning the patient woke up,was a bit drowsy, however, was able to hold a meaningful conversation. He ate his breakfast. [facility] evaluated the patient and deemed that his drug overdose was not suicidal nature. Patient's blood work was unremarkable. His Tylenol and salicylate level were negative. Only positive was methamphetamine. Beyond the patient's underlying substance abuse issues. It is possible that the patient has significant underlying psychiatric issue. However, on talking with the mental health behavior expert. He noted that most of the patient's symptoms are related to his polysubstance abuse. The patient's spoke with [employer] and explained the patient's overall background health condition. The patient has had history of severe substance abuse and significant underlying psychiatric disorder. [facility] health [facility] from [facility] evaluated the patient and deemed that he is not suicidal. He does not require inpatient psychiatric help. The patient has no acute medical condition warranting stay in the hospital, he is able to tolerate by mouth diet very well, his lab work is unremarkable. His mental status has cleared up significantly. The patient will be discharged back home. It is my understanding that the patient has been on parole and had progress parole and will likely be arrested after discharge. Discharge diagnosis: Substance abuse. - Time Spent with Patient Total time spent providing and/or coordinating discharge services: Greater than 30 minutes Medical - DS: Exam - Constitutional Vitals: Vital Signs Temp Pulse Pulse Resp BP Pulse Ox 05/20/17 14:00 98.4 F 12 108/77 05/20/17 13:00 12 109/83 05/20/17 10:00 14 05/20/17 09:00 97.3 F 115 H 22 05/20/17 08:00 12 102/72 100 05/20/17 07:00 12 132/83 99 05/20/17 06:00 14 108/77 100 05/20/17 05:00 12 100/71 98 05/20/17 04:00 97.8 F 12 110/86 100 05/20/17 03:00 11 L 99/70 99 05/20/17 02:00 62 14 106/75 99 05/20/17 01:00 12 115/94 98 05/20/17 00:00 12 123/85 99 05/19/17 23:00 70 14 103/64 98 05/19/17 22:43 12 107/65 96 05/19/17 20:01 97.3 F 21 132/94 05/19/17 20:00 58 L 05/19/17 19:00 57 L 11 L 117/89 97 05/19/17 18:21 16 125/92 97 05/19/17 17:01 97.4 F 15 121/86 98 05/19/17 16:01 97.4 F 11 L 100/76 Intake and Output 05/20/17 05/20/17 05/20/17 05:59 13:59 21:59 Intake Total 423 / 423 1753 / 1753 200 / 200 Output Total 1040 / 1040 710 / 710 60 / 60 Balance -617 / -617 1043 / 1043 140 / 140 Intake: IV 423 / 423 1073 / 1073 Dextrose 5%-1/2Ns W/20Meq KCl 1 1073 / 1073 ,000 ml @ 100 mls/hr IV .Q10H [facility] Rx#:[id number] Dextrose 5%-Lactated Ringers 1, 413 / 413 000 ml @ 125 mls/hr IV .Q8H [facility] Rx#:[id number] Ativan 50 mg In Dextrose 5% in 2 / 2 Water 75 ml @ 0.01 MG/KG/HR 1. 88 mls/hr IV Q12H [facility] Rx#: [id number] Oral 680 / 680 200 / 200 Output: Urine Catheter Amount 1040 / 1040 710 / 710 60 Other: Meal Breakfast Lunch Percent of Meal Consumed 75% 100% Stool Size Smear Stool Color Brown Weight 201 lb 9.6 oz Patient Weight 05/21/17 05:59 Weight 201 lb 9.6 oz Medical - DS: Data Labs on day of discharge: Labs from last 24 hours 05/20/17 05/20/17 04:50 04:50 WBC 6.4 RBC 5.06 Hgb 15.4 Hct 46.8 MCV 92.4 MCH 30.5 MCHC 33.0 RDW 14.4 Plt Count 204 MPV 9.0 Gran % 53.0 Lymph % (Auto) 34.4 [place] % (Auto) 9.9 Eos % (Auto) 2.3 Baso % (Auto) 0.4 Gran # 3.4 Lymph # (Auto) 2.2 [place] # (Auto) 0.6 Eos # (Auto) 0.1 Baso # (Auto) 0 Sodium 144 Potassium 4.2 Chloride 107 Carbon Dioxide 28 Anion Gap 9.0 BUN 7 Creatinine 1.0 GFR Calculation 99 Glucose 74 Uric Acid 6.7 Calcium 8.9 Phosphorus 3.4 Magnesium 2.3 Total Bilirubin 0.6 Direct Bilirubin < 0.2 GGT 59 AST 19 ALT 39 Alkaline Phosphatase 55 Lactate Dehydrogenase 151 Total Protein 6.3 Albumin 3.8 Globulin 2.5 Albumin/Globulin Ratio 1.5 Triglycerides 92 Medical - DS: A/P - Patient/Caregiver Discharge Instructions Activity: increase activity as tolerated Diet: Regular Diet Additional Instructions: You were admitted for drug overdose and altered mental status, Please avoid use of methamphetamine follow up with your doctor in 1 week - Follow up Plan Disposition: Home, Self-Care Prognosis: Fair Rehab Potential: Fair I certify that the patient requires SNF services: No Overall status at discharge: patient is progressing back to baseline
[2017-06-08 11:26] LABS: Opiate Screen NEGATIVE
[2017-06-08 11:27] LABS: Amphetamine Screen ***POSITIVE***; Benzodiazepine Screen NEGATIVE
[2017-06-11 16:47] LABS: Clomipramine <5; Grand Total 413; Imipramine+Desipramine <5; Nortripyline 45
== END 2017-05-20 15:20 | disposition home or self-care (01) | DRG 918 ==
LOC: ED 16:16 → ICU 21:08
PROVIDERS: ADMIT Internal Medicine; ATTEND Internal Medicine